=== PATIENT | female | born 1965 | race Caucasian/White ===

== ENCOUNTER 2018-06-21 17:25 | Emergency (ER) | payer OTHER ==
[2018-06-21] MEDS: NS 1,000 ML IV (20:18)
[2018-06-21] MEDS: KETOROLAC 30 MG/ML VIAL (J1885) IV (20:19)
[2018-06-21 20:46] LABS: BASO # 0.1 10^3/uL (0.0-0.2); BASO % 0.6 % (0.0-1.0); EOS # 0.1 10^3/uL (0.0-0.50); EOS % 0.9 % (0.0-3.0); HEMATOCRIT 39.6 % (36.0-47.0); HEMOGLOBIN 13.5 g/dl (12.0-15.5); IMMATURE GRANULOCYTE % 0.3 % (0-3.0); LYMPH # 2.5 10^3/uL (1.5-4.5); LYMPH % 18.2 % (24.0-44.0); MEAN CORPUSCULAR HEMOGLOBIN 30.3 pg (27.0-33.0); MEAN CORPUSCULAR HGB CONC 34.1 g/dl (32.0-36.5); MONO % 7.4 % (0.0-5.0); NEUTROPHILS # 10.1 10^3/uL (1.8-7.7); NEUTROPHILS % 72.6 % (36.0-66.0); PLATELET COUNT, AUTOMATED 329 10^3/uL (150-450); RED BLOOD COUNT 4.45 10^6/uL (4.00-5.40); RED CELL DISTRIBUTION WIDTH 13.4 % (11.5-14.5); WHITE BLOOD COUNT 13.9 10^3/uL (4.0-10.0)
[2018-06-21 21:09] LABS: ANION GAP 7 MEQ/L (8-16); BLOOD UREA NITROGEN 16 MG/DL (7-18); C REACTIVE PROTEIN QUANTITATIV < 0.30 MG/DL (0.00-0.30); CARBON DIOXIDE LEVEL 25 MEQ/L (21-32); CHLORIDE LEVEL 106 MEQ/L (98-107); CREATININE FOR GFR 0.82 MG/DL (0.55-1.30); GLOMERULAR FILTRATION RATE > 60.0 (>51); GLUCOSE, FASTING 110 MG/DL (70-100); POTASSIUM SERUM 3.3 MEQ/L (3.5-5.1); SODIUM LEVEL 138 MEQ/L (136-145)
[2018-06-21 21:53] LABS: ERYTHROCYTE SEDIMENTATION RATE 4 mm/hr (0-30)
== END 2018-06-21 22:43 | disposition home or self-care (01) ==
LOC: M ED 17:25
DX: L03.114 Cellulitis of left upper limb (principal); S41.152D Open bite of left upper arm, subsequent encounter; W55.01XD Bitten by cat, subsequent encounter; Z88.0 Allergy status to penicillin
CPT/HCPCS: J1885

== ENCOUNTER 2018-06-22 10:19 | Emergency (ER) | payer OTHER | END 2018-06-22 12:05 | disposition home or self-care (01) | LOC: M ED 10:19 | DX: L08.9 Local infection of the skin and subcutaneous tissue, unspecified (principal); L03.114 Cellulitis of left upper limb; W55.01XD Bitten by cat, subsequent encounter; Y92.9 Unspecified place or not applicable; Y93.9 Activity, unspecified; Y99.9 Unspecified external cause status; Z79.899 Other long term (current) drug therapy; Z88.0 Allergy status to penicillin | CPT/HCPCS: 99283 ==

== ENCOUNTER 2018-06-23 13:57 | Inpatient (IN) | payer OTHER ==
[2018-06-23] MEDS: KETOROLAC 30 MG/ML VIAL (J1885) IV (14:43)
[2018-06-23] MEDS: NS 1,000 ML IV (14:43)
[2018-06-23 14:58] LABS: BASO # 0.1 10^3/uL (0.0-0.2); BASO % 0.6 % (0.0-1.0); EOS # 0.2 10^3/uL (0.0-0.50); EOS % 1.9 % (0.0-3.0); HEMATOCRIT 39.6 % (36.0-47.0); HEMOGLOBIN 13.4 g/dl (12.0-15.5); IMMATURE GRANULOCYTE % 0.3 % (0-3.0); LYMPH # 2.6 10^3/uL (1.5-4.5); LYMPH % 21.6 % (24.0-44.0); MEAN CORPUSCULAR HEMOGLOBIN 30.1 pg (27.0-33.0); MEAN CORPUSCULAR HGB CONC 33.8 g/dl (32.0-36.5); MONO % 8.3 % (0.0-5.0); NEUTROPHILS % 67.3 % (36.0-66.0); PLATELET COUNT, AUTOMATED 339 10^3/uL (150-450); RED BLOOD COUNT 4.45 10^6/uL (4.00-5.40); RED CELL DISTRIBUTION WIDTH 13.5 % (11.5-14.5); WHITE BLOOD COUNT 11.8 10^3/uL (4.0-10.0)
[2018-06-23 15:16] LABS: ANION GAP 7 MEQ/L (8-16); BLOOD UREA NITROGEN 16 MG/DL (7-18); C REACTIVE PROTEIN QUANTITATIV 2.58 MG/DL (0.00-0.30); CALCIUM LEVEL 8.4 MG/DL (8.5-10.1); CARBON DIOXIDE LEVEL 25 MEQ/L (21-32); CHLORIDE LEVEL 109 MEQ/L (98-107); CREATININE FOR GFR 0.85 MG/DL (0.55-1.30); GLOMERULAR FILTRATION RATE > 60.0 (>51); GLUCOSE, FASTING 84 MG/DL (70-100); POTASSIUM SERUM 3.6 MEQ/L (3.5-5.1); SODIUM LEVEL 141 MEQ/L (136-145)
[2018-06-23 15:19] LABS: ERYTHROCYTE SEDIMENTATION RATE 13 mm/hr (0-30)
[2018-06-23 15:21] LABS: LACTIC ACID SEPSIS PROTOCOL 1.2 MMOL/L (0.4-2.0)
[2018-06-23] MEDS ORDERED: ISOVUE-370 76% 100ML VIAL (Q9967) As Ordered (15:36)
[2018-06-23] MEDS ORDERED: MORPHINE 4 MG/ML 1ML VIAL/SYRINGE (J2270) IV (16:00)
[2018-06-23] MEDS ORDERED: metroNIDAZOLE 500 MG in APPROPRIATE DILUENT 1 EA IV (16:00)
[2018-06-23] MEDS ORDERED: ONDANSETRON 4MG/2ML VIAL (J2405) IV (16:00)
[2018-06-23] MEDS ORDERED: LevoFLOXacin IV 750 MG in APPROPRIATE DILUENT 1 EA IV (17:00)
[2018-06-23] MEDS: LevoFLOXacin IV 750 MG in APPROPRIATE DILUENT 1 EA IV (18:39)
[2018-06-23] MEDS: SENOKOT S TAB PO (20:26)
[2018-06-23] MEDS: **hydrALAZINE HCL** 25 MG TAB PO (20:27)
[2018-06-23] MEDS: LACTOBACILLUS ACIDOPHILUS CAP (BACID) PO (20:37)
[2018-06-23] MEDS: CLINDAMYCIN 300 MG in APPROPRIATE DILUENT 1 EA IV (20:38)
[2018-06-24] MEDS: **hydrALAZINE HCL** 25 MG TAB PO ×4 (00:27→21:15)
[2018-06-24] MEDS: ACETAMINOPHEN TAB 650MG DOSE (2X325MG) PO ×2 (04:06→14:06)
[2018-06-24] MEDS: CLINDAMYCIN 300 MG in APPROPRIATE DILUENT 1 EA IV ×3 (04:06→20:22)
[2018-06-24 08:12] LABS: HEMATOCRIT 37.3 % (36.0-47.0); HEMOGLOBIN 12.5 g/dl (12.0-15.5); MEAN CORPUSCULAR HEMOGLOBIN 29.6 pg (27.0-33.0); MEAN CORPUSCULAR HGB CONC 33.5 g/dl (32.0-36.5); MEAN CORPUSCULAR VOLUME 88.4 fl (80.0-96.0); PLATELET COUNT, AUTOMATED 305 10^3/uL (150-450); RED BLOOD COUNT 4.22 10^6/uL (4.00-5.40); RED CELL DISTRIBUTION WIDTH 13.3 % (11.5-14.5); WHITE BLOOD COUNT 7.1 10^3/uL (4.0-10.0)
[2018-06-24] MEDS: LACTOBACILLUS ACIDOPHILUS CAP (BACID) PO ×3 (08:13→20:21)
[2018-06-24] MEDS: MULTIVITAMINS/MINERALS THERAP 1 TAB PO (08:14)
[2018-06-24] MEDS: SENOKOT S TAB PO ×2 (08:14→20:08)
[2018-06-24] MEDS: amLODIPine 5 MG TAB PO (08:15)
[2018-06-24] MEDS: ENOXAPARIN 40 MG/0.4 ML SYRINGE (J1650) SC (08:17)
[2018-06-24 08:44] LABS: ALBUMIN 3.5 GM/DL (3.2-5.2); ALBUMIN/GLOBULIN RATIO 1.21 (1.00-1.93); ALKALINE PHOSPHATASE 62 U/L (45-117); ALT/SGPT 22 U/L (12-78); ANION GAP 6 MEQ/L (8-16); AST/SGOT 11 U/L (7-37); BILIRUBIN,TOTAL 0.4 MG/DL (0.2-1.0); BLOOD UREA NITROGEN 14 MG/DL (7-18); C REACTIVE PROTEIN QUANTITATIV 1.89 MG/DL (0.00-0.30); CALCIUM LEVEL 8.5 MG/DL (8.5-10.1); CARBON DIOXIDE LEVEL 26 MEQ/L (21-32); CHLORIDE LEVEL 108 MEQ/L (98-107); CREATININE FOR GFR 0.71 MG/DL (0.55-1.30); GLOMERULAR FILTRATION RATE > 60.0 (>51); GLUCOSE, FASTING 92 MG/DL (70-100); MAGNESIUM LEVEL 2.2 MG/DL (1.8-2.4); POTASSIUM SERUM 3.9 MEQ/L (3.5-5.1); SODIUM LEVEL 140 MEQ/L (136-145); TOTAL PROTEIN 6.4 GM/DL (6.4-8.2)
[2018-06-24] MEDS: LevoFLOXacin IV 750 MG in APPROPRIATE DILUENT 1 EA IV (17:37)
[2018-06-24] MEDS: PERCOCET 5MG/325MG TAB PO (18:18)
[2018-06-24] MEDS: MELATONIN 1 MG PO (20:22)
[2018-06-24] MEDS: NS 1,000 ML IV (20:33)
[2018-06-24] MEDS ORDERED: **hydrALAZINE HCL** 25 MG TAB PO (20:45)
[2018-06-25] MEDS: ACETAMINOPHEN TAB 650MG DOSE (2X325MG) PO ×2 (00:11→09:27)
[2018-06-25] MEDS: **hydrALAZINE HCL** 25 MG TAB PO ×3 (00:12→15:53)
[2018-06-25] MEDS: CLINDAMYCIN 300 MG in APPROPRIATE DILUENT 1 EA IV ×2 (03:11→12:17)
[2018-06-25 07:10] LABS: HEMOGLOBIN 13.4 g/dl (12.0-15.5); MEAN CORPUSCULAR HEMOGLOBIN 29.6 pg (27.0-33.0); MEAN CORPUSCULAR HGB CONC 34.4 g/dl (32.0-36.5); MEAN CORPUSCULAR VOLUME 86.3 fl (80.0-96.0); PLATELET COUNT, AUTOMATED 321 10^3/uL (150-450); RED BLOOD COUNT 4.52 10^6/uL (4.00-5.40); RED CELL DISTRIBUTION WIDTH 13.4 % (11.5-14.5); WHITE BLOOD COUNT 6.8 10^3/uL (4.0-10.0)
[2018-06-25 07:35] LABS: ALBUMIN 3.4 GM/DL (3.2-5.2); ALBUMIN/GLOBULIN RATIO 0.92 (1.00-1.93); ALKALINE PHOSPHATASE 63 U/L (45-117); ALT/SGPT 21 U/L (12-78); ANION GAP 6 MEQ/L (8-16); AST/SGOT 10 U/L (7-37); BILIRUBIN,TOTAL 0.4 MG/DL (0.2-1.0); BLOOD UREA NITROGEN 13 MG/DL (7-18); C REACTIVE PROTEIN QUANTITATIV 1.11 MG/DL (0.00-0.30); CALCIUM LEVEL 8.7 MG/DL (8.5-10.1); CARBON DIOXIDE LEVEL 27 MEQ/L (21-32); CHLORIDE LEVEL 107 MEQ/L (98-107); CREATININE FOR GFR 0.72 MG/DL (0.55-1.30); GLOMERULAR FILTRATION RATE > 60.0 (>51); GLUCOSE, FASTING 96 MG/DL (70-100); MAGNESIUM LEVEL 2.3 MG/DL (1.8-2.4); POTASSIUM SERUM 3.8 MEQ/L (3.5-5.1); SODIUM LEVEL 140 MEQ/L (136-145); TOTAL PROTEIN 7.1 GM/DL (6.4-8.2)
[2018-06-25] MEDS: SENOKOT S TAB PO (09:26)
[2018-06-25] MEDS: MULTIVITAMINS/MINERALS THERAP 1 TAB PO (09:26)
[2018-06-25] MEDS: LACTOBACILLUS ACIDOPHILUS CAP (BACID) PO ×2 (09:27→15:52)
[2018-06-25] MEDS: ENOXAPARIN 40 MG/0.4 ML SYRINGE (J1650) SC (09:28)
[2018-06-25] MEDS: amLODIPine 10 MG TAB PO (09:28)
[2018-06-25 14:42] LABS: ERYTHROCYTE SEDIMENTATION RATE 11 mm/hr (0-30)
[2018-06-25] MEDS: IBUPROFEN 400 MG TAB PO (17:01)
[2018-06-25] MEDS: LevoFLOXacin IV 750 MG in APPROPRIATE DILUENT 1 EA IV (17:01)
== END 2018-06-25 18:30 | disposition home or self-care (01) | DRG 603 ==
LOC: M ED 13:57 → M ED INP 15:56 → M PED 17:15
DX: L03.114 Cellulitis of left upper limb (principal); I16.0 Hypertensive urgency; Z85.820 Personal history of malignant melanoma of skin; Z79.899 Other long term (current) drug therapy; Z88.0 Allergy status to penicillin; S60.572A Other superficial bite of hand of left hand, initial encounter; W55.01XA Bitten by cat, initial encounter; Y92.009 Unspecified place in unspecified non-institutional (private) residence as the place of occurrence of the external cause